=== PATIENT | male | born 1960 | race American Indian/Alaskan Native ===

== ENCOUNTER 2017-04-04 12:48 | Emergency (ER) | payer OTHER ==
[2017-04-04 12:58] VITALS: BP 118/70; PULSE 76; RESP 18; TEMP 97.7; O2SAT 96
--- NOTE | 2017-04-04 13:35 | C.PDOC ---
History Of Present Illness 56 y/o M presents for heroin detox. Denies fever, pain, or dyspnea. Denies SI and HI. Time Seen by Provider: 04/04/17 13:11 Chief Complaint (Nursing): Substance Abuse Past Medical History Vital Signs: Last Vital Signs Temp 97.7 F 04/04/17 12:54 Pulse 76 04/04/17 12:54 Resp 18 04/04/17 12:54 BP 118/70 04/04/17 12:54 Pulse Ox 96 04/04/17 13:35 - Medical History PMH: HIV (diagnosed 2003) Family History: States: No Known Family Hx - Social History Hx Alcohol Use: No Hx Substance Use: Yes (heroin use) - Immunization History Hx Tetanus Toxoid Vaccination: No Hx Influenza Vaccination: No Hx Pneumococcal Vaccination: No Review Of Systems Except As Marked, All Systems Reviewed And Found Negative. Constitutional: Negative for: Fever Cardiovascular: Negative for: Chest Pain Physical Exam - Physical Exam Additional Physical Exam Comments: Gen: No acute distress. Head: Normocephalic, atraumatic. Eyes: PERRL. ENT: Moist mucous membranes. Neck: Supple. CV: Regular rate. Resp: Clear to auscultation bilaterally. Breathing spontaneously. Abd: Soft, nontender, nondistended. Extremities: No swelling or tenderness. Skin: No rash. Neuro: Alert, no focal deficit. ED Course And Treatment O2 Sat by Pulse Oximetry: 96 Medical Decision Making Medical Decision Making: No detox beds available. Patient stable, normal vitals. Given other detox units in area and phone number for our Detox unit to ask for bed availability. Disposition - Disposition Disposition: HOME/ ROUTINE Disposition Time: 13:34 Condition: STABLE Additional Instructions: Call [phone] and ask to be transferred to Crisis and then ask if there are any detox beds available for you. Instructions: Narcotic Abuse (ED) Forms: [employer] ([place]) - Clinical Impression Clinical Impression: Heroin abuse
== END 2017-04-04 13:52 | disposition home or self-care (01) ==
LOC: C.ER 12:48
DX: F11.10 Opioid abuse, uncomplicated (principal)